=== PATIENT | female | born 1940 | race Caucasian/White ===

== ENCOUNTER 2016-11-12 16:27 | Emergency (ER) | payer OTHER ==
--- NOTE | 2016-11-12 18:05 | ED Physician Documentation ---
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 ) Exacerbated By: walking (standing) Relieved By: nothing Further Comments: yes (Patient states that lamar was standing in her kitchen when her lright knee buckled under her. No associated pain. Has given out from her once before and one month ago which caused her to fall. Fell again this evening and was not able to get back up. No joint swelling noted. Has not seen anyone for the problem. Denies any LOC, cardiac palpitations or bradycardia, no history of seizures.) - ROS CONST: no problems - PAST HX Past History: other (Hyperlipidemia) PE Risk Factors: none Other History: hypertension Surgeries/Procedures: other (tonsilectomy) Immunizations: referred to PCP Allergies/Adverse Reactions: Allergies Allergy/AdvReac Type Severity Reaction Status Date / Time No Known Allergies Allergy Verified 06/19/13 10:25 Home Medications: Ambulatory Orders Medication Instructions Recorded Calcium Carbonate 250 mg PO BID 06/24/13 - SOCIAL HX Smoking History: non-smoker Alcohol Use: none Drug Use: none - FAMILY HX Family History: none - VITAL SIGNS Vital Signs: Vital Signs Temp Pulse Resp BP Pulse Ox 98.8 F 100 H 18 175/70 94 11/12/16 16:34 11/12/16 16:34 11/12/16 16:34 11/12/16 16:34 11/12/16 16:34 - REVIEWED ASSESSMENTS Nursing Assessment Reviewed: Yes Vitals Reviewed: Yes ED Results Lab/Radiology - Radiology Radiology Impressions: normal x-ray, no fracture noted, lateral subluxation of the patella. - Orders Orders: ED Orders Category Date Time Status KNEE 3 VIEWS [RAD] Stat Exams 11/12/16 Ordered Lower Extremity Problem - EXAM General Appearance: no distress Hips: bilateral hip: non-tender, normal inspection, normal range of motion, no evidence of injury Legs: bilateral: non-tender, normal inspection, normal range of motion, no evidence of injury Knees: right: pain (mild tenderness to palpation), soft tissue tenderness, left : normal inspection, bilateral: non-tender, normal range of motion, no evidence of injury, N/A: ecchymosis (none), joint effusion (none) Ankle: bilateral: non-tender, normal inspection, normal range of motion, no evidence of injury DTR - Lower Extremities: knee (R): 2+, knee (L): 2+, ankle (R): 2+, ankle (L): 2 + Neuro/Tendon: normal sensation, normal motor functions, normal tendon functions , responds to pain, no evidence tendon injury RESPIRATORY: no resp distress, chest non-tender, breath sounds normal. No: wheezes, rales, rhonchi CVS: reg rate & rhythm, heart sounds normal, equal pulses, no murmur, no gallop JOINT: limited ROM (mild decrease flex in R knee, really pretty good). No: ligaments laxity NEURO/PSYCH: oriented X3, CN's nml as tested, mood/affect nml, cognition normal SKIN: warm/dry, normal color, cyanosis BACK: normal inspection, no CVA tenderness Discharge Clincal Impression: Knee buckling Qualifiers: Laterality: right Qualified Code(s): M25.361 - Other instability, right knee Referrals: Suzanna Montilla MD [Primary Care Provider] - 2 Days Additional Instructions: Do exercises as directed. To make an appointment to see Dr Montilla about further evaluation and possible physical therapy. Home Medications: Ambulatory Orders Calcium Carbonate 250 mg PO BID 06/24/13 Condition: Stable Disposition: 01 HOME, SELF-CARE Decision to Admit: NO Date of Decison to Admit: 11/12/16 Decision Time: 18:14
[2016-11-12 19:09] VITALS: BP 170/74
--- NOTE | 2016-11-12 19:17 | Diagnostic Imaging Report ---
[facility] [address] [facility].[address] [address] Report Submission Date: Nov 12, 2016 6:28:14 PM CLAIM BENEFIT SPECIALIST Patient Study Name: STEPHEN DOWD Date: Nov 12, 2016 5:59:01 PM CLAIM BENEFIT SPECIALIST Modality Type: CR Gender: F Description: LOWER EXTREMITY : 38 Institution: [facility] Physician: TINO WILL - ADAMS 3 views of the right knee Clinical history: Right knee pain Findings: No acute fracture is identified. There is a joint effusion. There is a lateral subluxation of the patella. Impression: Lateral subluxation of patella with a joint effusion. Electronically signed on Nov 12, 2016 6:28:14 PM CLAIM BENEFIT SPECIALIST by: Jean Claude BENAVIDES
== END 2016-11-12 19:06 | disposition home or self-care (01) ==
LOC: ED 16:27
DX: M25.361 Other instability, right knee (principal)
CPT/HCPCS: 73562; L1830; 99283

== ENCOUNTER 2016-11-12 21:07 | Observation (INO) | payer OTHER ==
[2016-11-12] MEDS ORDERED: 0.9 % SODIUM CHLORIDE 500 ML IV ONE ×2 (21:27→22:59)
--- NOTE | 2016-11-12 21:30 | ED Physician Documentation ---
General Adult - HISTORIAN Historian: patient - HPI Stated Complaint: weakness/fall Chief Complaint: General Adult Onset: hours Timing: still present Severity: moderate Further Comments: yes (Pt is a 76 yo female who lives alone and was here in the ER a short time ago today after falling at home. Pt uses a walker and went home from ER and fell again. Pt states she stuck her head lightly against the wall. She says this was only a minor blow. She has no neck or head pain, but continues to complain of knee pain from her earlier fall. Pt c/o of not being able to keep her balance, even while using her walker. Pt has low SpO2=88% RA on presentation. Pt does not have hx COPD. R knee x-ray done at earlier visit showed lateral subluxation of the patella with effusion, but no fracture.) - ROS CONST: weakness EYES/ENT: none CVS/RESP: cough GI/: other (urinary frequency) MS/SKIN/LYMPH: other (R knee pain s/p fall) NEURO/PSYCH: difficulty walking - PAST HX Past History: other (HLD, HTN, ambulates with walker) Allergies/Adverse Reactions: Allergies Allergy/AdvReac Type Severity Reaction Status Date / Time No Known Allergies Allergy Verified 06/19/13 10:25 Home Medications: Ambulatory Orders Medication Instructions Recorded Calcium Carbonate 250 mg PO BID 06/24/13 - SOCIAL HX Smoking History: non-smoker - FAMILY HX Family History: No - VITAL SIGNS Vital Signs: Vital Signs Temp Pulse Resp BP Pulse Ox 98.6 F 117 H 18 165/73 90 L 11/12/16 21:19 11/12/16 21:19 11/12/16 21:19 11/12/16 21:19 11/12/16 21:19 - REVIEWED ASSESSMENTS Nursing Assessment Reviewed: Yes Vitals Reviewed: Yes Progress - Progress Progress: x-ray R knee from earlier visit, done at 17:59 today: Lateral subluxation of patella with a joint effusion. BUN/Cre ratio = 27 NS 1 L IVF Albuterol HFN SpO2 88 % RA --> 93% 2L NC CXR : elevated R hemidiaphragm & R basilar atelectasis. Admit to obs. ER Physician, Low SpO2, R knee injury with effusion, dehydration , multiple falls. - EKG/XRAY/CT XRAY: chest (Elevation of the right hemidiaphragm and right basilar atelectasis. ) ED Results Lab/Radiology - Orders Orders: ED Orders Category Date Time Status Place Saline Lock/IV Now Care 11/12/16 21:27 Active CHEST 1 VIEW [RAD] Stat Exams 11/12/16 Ordered BNP [NT-proBNP] Stat Lab 11/12/16 Ordered CBC/PLATELET/DIFF Routine Lab 11/12/16 Ordered CMP Routine Lab 11/12/16 Ordered UA [URINALYSIS] Routine Lab 11/12/16 Ordered 0.9 % Sodium Chloride [Normal Saline] 500 ml Med 11/12/16 21:27 Active IV NOW General Adult Physical Exam - PHYSICAL EXAM GENERAL APPEARANCE: moderate distress EENT: eye inspection normal, ENT inspection normal, pharynx normal NECK: normal inspection, supple RESPIRATORY: other (distant breath sounds) CVS: reg rate & rhythm, heart sounds normal ABDOMEN: soft, no organomegaly, normal bowel sounds BACK: normal inspection, no CVA tenderness SKIN: warm/dry, normal color EXTREMITIES: other (R knee tenderness) NEURO: oriented X3, motor nml, sensation nml Discharge Clincal Impression: low SpO2 saturations, Multiple falls, Dehydration, Weakness, R knee injury with joint effusion Lateral subluxation of right patella Qualifiers: Encounter type: subsequent encounter Qualified Code(s): S83.011D - Lateral subluxation of right patella, subsequent encounter Referrals: Suzanna Montilla MD [Primary Care Provider] - Home Medications: Ambulatory Orders Calcium Carbonate 250 mg PO BID 06/24/13 Condition: Stable Disposition: 09 ADMITTED INPATIENT Decision to Admit: [id number] Decision Time: 23:44
[2016-11-12 22:18] LABS: BASOPHILS % 0.1 (0.0-1.5); EOSINOPHILS % 1.1 % (0.0-6.8); LYMPHOCYTES # 1.4 # k/uL (0.6-4.0); MEAN CORPUSCULAR HEMOGLOBIN 30.7 pg (28.0-34.0); MONOCYTES # 0.5 # k/uL (0.0-0.9); MONOCYTES % 4.8 % (0.0-11.0)
[2016-11-12 22:47] LABS: eGFR (African) > 60; eGFR (Non-African) > 60
--- NOTE | 2016-11-12 22:54 | Diagnostic Imaging Report ---
ALEXANDER HERMOSILLO [facility] [address] [facility] [address] [address] Report Submission Date: Nov 12, 2016 9:58:[address] MACHINE OPERATOR Patient Study Name: STEPHEN DOWD Date: Nov 12, 2016 9:42:[address] MACHINE OPERATOR Modality Type: CR Gender: F Description: CHEST : 38 Institution: [facility] Physician: ALEXANDER HERMOSILLO Chest AP portable Exam: November 12, 2016. Clinical history: Cough. Findings: No comparison studies are provided. There is elevation of the right hemidiaphragm and right basilar atelectasis. The cardiac and mediastinal silhouettes are normal. The aortic arch contour is prominent. The left lung is clear. The pulmonary vascularity is within normal limits. Impression: Elevation of the right hemidiaphragm and right basilar atelectasis. Electronically signed on Nov 12, 2016 9:58:[address] MACHINE OPERATOR by: Davi BENAVIDES
[2016-11-12 23:16] LABS: APPEARANCE,URINE Clear (CLEAR); COLOR,URINE Yellow (YELLOW); OCCULT BLOOD,URINE Negative (NEGATIVE); UROBILINOGEN URINE 0.2 Eu (0.2-1.0)
[2016-11-12] MEDS ORDERED: IPRATROPIUM/ALBUTEROL SULFATE 3 ML AMPUL.NEB NEB ONE (23:29)
[2016-11-12] MEDS ORDERED: ALBUTEROL SULFATE 2.5 MG/3 ML AMPUL.NEB NEB PRN (23:42)
[2016-11-13] MEDS: 0.9 % SODIUM CHLORIDE 1,000 ML IV SCH ×2 (00:35→11:18)
[2016-11-13 02:05] VITALS: BMI 32.7
[2016-11-13] MEDS ORDERED: CYANOCOBALAMIN 1,000 MCG TABLET PO SCH (09:00)
[2016-11-13] MEDS ORDERED: CALCIUM CARB 500 MG TAB.CHEW PO SCH (09:00)
[2016-11-13] MEDS ORDERED: HYDROCHLOROTHIAZIDE 25 MG TABLET PO SCH (09:00)
[2016-11-13] MEDS ORDERED: LISINOPRIL 20 MG TABLET PO SCH (09:00)
--- NOTE | 2016-11-13 11:44 | Diagnostic Imaging Report ---
S[facility]ING/MED SURG [facility] [address] [facility] [address] [address] Report Submission Date: Nov 13, 2016 11:09:31 AM REMOTE SENSING PROGRAM MANAGER Patient Study Name: STEPHEN ODWD Date: Nov 13, 2016 9:40:09 AM REMOTE SENSING PROGRAM MANAGER Modality Type: CR Gender: F Description: LOWER EXTREMITY : 38 Institution: [facility] Physician: SOUTH WING/MED SURG Bilateral knees Clinical history: Pain Abnormal patella Technique AP lateral and sunrise of both knees Findings: Both knee show degenerative arthritis which appears fairly symmetric. The arthritis affects the knee joint and patellofemoral joint. There is periarticular spurring. No fracture, effusion bone destruction is seen. Both the show popliteal artery calcification. Impression degenerative arthritis Acute bony pathology Vascular calcification Electronically signed on Nov 13, 2016 11:09:31 AM REMOTE SENSING PROGRAM MANAGER by: Emilio BENAVIDES
--- NOTE | 2016-11-13 11:51 | Discharge Summary ---
Discharge Summary - Discharge Sumary History of Present Illness: Patient admitted to OBS due to knee pain and unable to return home. She presented to ER twice with 2 different falls in 10 hours. Radiologist worried about subluxation of L patella. Condition at Discharge: Stable Home Medications: Ambulatory Orders Medication Instructions Recorded Calcium Carbonate 250 mg PO BID 06/24/13 Aspirin [Maggie] 11/13/16 Consultations this Visit: None Procedures this Visit: None Allergies/Adverse Reactions: Allergies Allergy/AdvReac Type Severity Reaction Status Date / Time No Known Allergies Allergy Verified 06/19/13 10:25 Patient Problems: Current Active Problems Problem Status Onset Dehydration Acute Lateral subluxation of right patella Acute Multiple falls Acute Weakness Acute Discharge Summary: Patient was admitted 23 hr obs by ER staff due to 2 falls and L knee pain. Patient remained stable but aware she can't return home at this time. Has agreed to go [facility] for some therapy and nursing care. Xrays of B knees showed same changed bilaterally. Hospital Course: Discharge Dx: L knee pain. OA. Ataxia. HTN. Osteoprosis. Disp - ICF
[2016-11-13 14:36] VITALS: BP 138/79
[2016-11-13] MEDS ORDERED: SIMVASTATIN 20 MG TABLET PEG SCH (21:00)
== END 2016-11-13 13:30 ==
LOC: ED 21:07 → SOUTH 11-13 00:09
PROVIDERS: ADMIT Emergency Medicine; ATTEND Emergency Medicine
DX: M17.0 Bilateral primary osteoarthritis of knee (principal); Z91.81 History of falling; Z87.828 Personal history of other (healed) physical injury and trauma; R27.0 Ataxia, unspecified; I10 Essential (primary) hypertension; M81.0 Age-related osteoporosis without current pathological fracture
CPT/HCPCS: 71010; 73562; 80053; 81002; 83880; 85025; 97535; G0378; J7030; J7060; 96360; 96361; S1016

== ENCOUNTER 2016-11-13 13:30 | Inpatient (IN) | payer SELFPAY ==
[2016-11-13 10:16] VITALS: BP 150/70
--- NOTE | 2016-11-14 16:00 | History and Physical Report ---
ADMISSION NOTE FOR [facility] CARE CHIEF COMPLAINT: Leg pain. HISTORY OF PRESENT ILLNESS: This is a 76-year-old female who came in through the ER and was admitted for observation for bilateral knee pain. She has an ataxic gait and has arthritis of the knees. She lives alone and is unable to go home, so it was elected to transfer her to [facility] care after she left observation care. PAST MEDICAL HISTORY: 1. Hypertension. 2. Hyperlipidemia. 3. Vitamin D deficiency with anemia. 4. Ataxia. 5. Osteopenia, bone density tests done in March 2015 was minus 2.4. PAST SURGICAL HISTORY: 1. Tonsillectomy. 2. Left hip fracture in 2012. MEDICATIONS: 1. Lisinopril/HCTZ 20/12.5 mg b.i.d. 2. Alendronate 70 mg weekly. 3. Lovastatin 40 mg daily. 4. Vitamin B12, 1000 mcg daily. 5. Calcium carbonate 500 mg b.i.d. 6. Vitamin D3, 2000 units daily. CODE STATUS: FULL CODE. HEALTH MAINTENANCE: Pneumonia 23 shot on June 29, 2013. Pneumonia 13 shot on June 28, 2015. SOCIAL HISTORY: She is single. She really has no family. She does not smoke. FAMILY HISTORY: Her sister of colon cancer at the age of 74. Patient has refused colonoscopies in the past. Mom of a stroke. PHYSICAL EXAMINATION: General: A well-nourished female in no acute distress. She is alert and oriented x3. HEENT: TMs are clear. Oropharynx is pink and moist. Neck: Supple. Lungs: Clear to auscultation bilaterally. Heart: Regular rate with no murmur. Abdomen: Soft and nontender. Extremities: Show crepitance and hypertrophy of the knee joints. There is no edema. ASSESSMENT AND PLAN: 1. Knee pain from osteoarthritis of the knees. We will go ahead and admit her to [facility] care. Get physical therapy involved. She just cannot return home alone and that is certainly her goal. 2. She also has hypertension. This is stable. We will watch her blood pressure in house. 3. History of vitamin B12 deficiency. This has been doing well and was looked at with observation care. 4. Osteopenia. Continue the calcium carbonate, vitamin D3, and alendronate. MTDD
--- NOTE | 2017-08-04 09:44 | Discharge Summary ---
DISCHARGED FROM [facility] TO [facility] DATE OF ADMISSION: November 13, 2016 DATE OF DISCHARGE: August 02, 2017 HOSPITAL COURSE: Patient was admitted to [facility] care after she felt unsafe to go home from a hospital stay. She did very well during her hospitalization. She had 1 episode that resembled a TIA, but the workup was negative. She continued to do very well, so therefore she elected to go to [facility] and was transferred there accordingly. CONDITION ON DISCHARGE: Good. DISCHARGE ACTIVITY: Ad louis. DISCHARGE DIET: Regular diet. MEDICATIONS ON DISCHARGE: 1. Fosamax 70 mg every Friday. 2. Vitamin B12, 1000 mcg daily. 3. Vitamin D3, 2000 units daily. 4. Aspirin 81 mg daily. 5. Lisinopril/hydrochlorothiazide 20/12.5 mg b.i.d. 6. Os-Jeremiah plus D 1 twice a day. 7. Lovastatin 40 mg at night. 8. Tylenol 650 mg every 6 hours p.r.n. pain. 9. Ibuprofen 400 mg every 8 hours p.r.n. pain. DISCHARGE INSTRUCTIONS: See Dr. Montilla in 6 months for follow up. KENNEDY
== END 2017-08-02 01:50 | DRG 948 ==
LOC: ICF 13:30
PROVIDERS: ADMIT Family Medicine; ATTEND Family Medicine
DX: R53.1 Weakness (principal)

== ENCOUNTER 2016-12-17 13:18 | Outpatient (CLI) | payer OTHER | END 2016-12-17 13:20 | LOC: POD 13:18 | PROVIDERS: ATTEND Podiatrist | DX: B35.1 Tinea unguium (principal); M79.674 Pain in right toe(s); M79.675 Pain in left toe(s) | CPT/HCPCS: G0463 ==

== ENCOUNTER 2017-03-28 13:14 | Outpatient (CLI) | payer OTHER | END 2017-03-28 13:15 | LOC: POD 13:14 | PROVIDERS: ATTEND Podiatrist | DX: B35.1 Tinea unguium (principal); M79.674 Pain in right toe(s); M79.675 Pain in left toe(s) | CPT/HCPCS: 11721; G0463 ==

== ENCOUNTER 2017-04-25 08:34 | Outpatient (CLI) | payer OTHER ==
--- NOTE | 2017-04-25 09:13 | Diagnostic Imaging Report ---
GUILLERMINA JONES/BINDU [facility] [address] [facility] [address] [place] [address]. [address] Report Submission Date: Apr 25, 2017 9:11:27 AM CDT Patient Study Name: STEPHEN DOWD Date: Apr 25, 2017 8:55:04 AM CDT Modality Type: CT\SR Gender: F Description: CT BRAIN W/O CONTRAST : 38 Institution: [facility] Physician: GUILLERMINA JONES/BINDU Head CT without contrast CLINICAL HISTORY: Mental status changes. TECHNIQUE: CT examination of brain is performed in contiguous axial slices without the use of contrast. Sagittal and coronal reconstructions are performed by the technologist. FINDINGS: The 4th ventricle lies in a normal midline position. The ventricles and sulci are prominent secondary to atrophy. Chronic ischemic changes are present in the periventricular regions. There is no hypodense or hyperdense mass or intracranial hemorrhage. Intracranial atherosclerosis is demonstrated. Visualized paranasal sinuses and the mastoid air cells are clear. IMPRESSION: Atrophy and chronic small vessel ischemic changes. Intracranial atherosclerosis. No acute intracranial changes. Electronically signed on Apr 25, 2017 9:11:27 AM CDT by: Ian BENAVIDES
[2017-04-25 10:18] LABS: BASOPHILS % 0.2 (0.0-1.5); EOSINOPHILS % 0.7 % (0.0-6.8); MONOCYTES % 3.7 % (0.0-11.0); NEUTROPHILS # 9.4 # k/uL (1.4-7.7)
[2017-04-25 10:33] LABS: eGFR (African) > 60; eGFR (Non-African) > 60
[2017-04-25 15:39] LABS: APPEARANCE,URINE Clear (CLEAR); COLOR,URINE Yellow (YELLOW); OCCULT BLOOD,URINE Trace-lysed (NEGATIVE); UROBILINOGEN URINE 0.2 Eu (0.2-1.0)
[2017-04-25 15:50] LABS: AMORPHOUS SEDIMENT,UR FEW (NEGATIVE)
--- NOTE | 2017-04-25 16:09 | Diagnostic Imaging Report ---
GUILLERMINA JONES/BINDU [facility] [address] [facility] [address] [address] Report Submission Date: Apr 25, 2017 3:56:08 PM CDT Patient Study Name: STEPHEN DOWD Date: Apr 25, 2017 11:31:39 AM CDT Modality Type: US Gender: F Description: DPLX SCN XTRCRAN ART CMP NOAH : 38 Institution: [facility] Physician: GUILLERMINA JONES/BINDU Duplex imaging of the carotids CLINICAL HISTORY: Dysphagia. Difficulty speaking. TECHNIQUE: Real-time sonography of the carotid and vertebral arteries is performed in transverse and longitudinal views. Doppler interrogation and color flow imaging are additionally used. FINDINGS: There is minimal plaque formation the region of the carotid bulb and proximal internal carotid arteries. No significant stenosis is evident on the grayscale images. Internal carotid peak velocities measure 104 centimeters/second on the right and 66 centimeters/second on the left with an internal carotid to common carotid artery ratio 1.1 on the right and 0.8 on the left. The vertebral arteries demonstrate normal cephalad flow. IMPRESSION: Minimal plaque formation. Bilateral less than 50% internal carotid stenosis. The degree of carotid stenosis is estimated using the Society of Radiologists in Ultrasound consensus conference of 2003 criteria. Electronically signed on Apr 25, 2017 3:56:08 PM CDT by: Ian BENAVIDES
== END 2017-04-25 08:44 ==
LOC: LAB 08:34
PROVIDERS: ATTEND Family Medicine
DX: R41.82 Altered mental status, unspecified (principal)
CPT/HCPCS: 36415; 70450; 80053; 81002; 85025; 87086; 93880

== ENCOUNTER 2017-04-29 16:08 | Outpatient (CLI) | payer OTHER | END 2017-04-29 16:30 | LOC: RAD 16:08 | PROVIDERS: ATTEND Family Medicine | DX: E86.0 Dehydration (principal); Z91.81 History of falling; G89.29 Other chronic pain; I10 Essential (primary) hypertension; E78.5 Hyperlipidemia, unspecified | CPT/HCPCS: 74230 ==

== ENCOUNTER 2017-07-01 13:19 | Outpatient (CLI) | payer OTHER | END 2017-07-01 13:20 | LOC: POD 13:19 | PROVIDERS: ATTEND Podiatrist | DX: B35.1 Tinea unguium (principal); M79.674 Pain in right toe(s); M79.675 Pain in left toe(s) | CPT/HCPCS: 11721; G0463 ==

== ENCOUNTER 2017-07-15 16:43 | Outpatient (CLI) | payer OTHER ==
--- NOTE | 2017-07-15 18:11 | Diagnostic Imaging Report ---
[facility] [address] [facility].[address] [address] Report Submission Date: Jul 15, 2017 6:04:21 PM CDT Patient Study Name: STEPHEN DOWD Date: Jul 15, 2017 5:37:52 PM CDT Modality Type: CR Gender: F Description: CHEST : 38 Institution: [facility] Physician: GUILLERMINA JONES/BINDU Examination: Portable chest History: Chest discomfort Comparison exam: 12 November 2016 Findings: Single view of the chest demonstrates a normal cardiac silhouette. Tortuous aorta with vascular calcifications involving the aortic arch. Elevation of the right hemidiaphragm. Lung finley without focal infiltrate. No effusion. Osseous structures are appropriate for age. Impression: Stable elevated right hemidiaphragm. No acute pulmonary process. Electronically signed on Jul 15, 2017 6:04:21 PM CDT by: Rick BENAVIDES
== END 2017-07-15 16:44 ==
LOC: RAD 16:43
PROVIDERS: ATTEND Family Medicine
DX: R05 Cough (principal)
CPT/HCPCS: 71020

== ENCOUNTER 2017-07-18 08:22 | Outpatient (CLI) | payer OTHER | END 2017-07-18 08:23 | LOC: OUT 08:22 | PROVIDERS: ATTEND Family Medicine | DX: Z23 Encounter for immunization (principal) | CPT/HCPCS: 90685; G0008 ==

== ENCOUNTER 2017-07-30 08:36 | Outpatient (CLI) | payer OTHER ==
[2017-07-30] MEDS ORDERED: TUBERCULIN,PURIF.PROT.DERIV. 5 TU/0.1 ML ID ONE (12:41)
== END 2017-07-30 11:21 ==
LOC: OUT 08:36
PROVIDERS: ATTEND Family Medicine
DX: R53.1 Weakness (principal)
CPT/HCPCS: 86580

== ENCOUNTER 2017-07-31 11:32 | Outpatient (CLI) | payer OTHER | END 2017-07-31 13:27 | LOC: RAD 11:32 | PROVIDERS: ATTEND Family Medicine | DX: M81.0 Age-related osteoporosis without current pathological fracture (principal) | CPT/HCPCS: 77080 ==

== ENCOUNTER 2017-08-02 06:58 | Outpatient (CLI) | payer OTHER ==
[2017-08-02 07:51] LABS: eGFR (African) > 60; eGFR (Non-African) > 60
== END 2017-08-02 07:00 ==
LOC: LAB 06:58
PROVIDERS: ATTEND Family Medicine
DX: I10 Essential (primary) hypertension (principal)
CPT/HCPCS: 36415; 80053; 80061

== ENCOUNTER 2017-08-31 12:20 | Emergency (ER) | payer OTHER ==
--- NOTE | 2017-08-31 13:13 | ED Physician Documentation ---
General Adult - HISTORIAN Historian: patient, paramedics - HPI Stated Complaint: syncope, confusion Chief Complaint: General Adult Onset: minutes Timing: better Severity: moderate Further Comments: yes (Pt is a 77 yo female shelter pt who, per report, passed out this am and appeared confused when she regained consciousness. Pt reports no seizure hx. Pt is A&Ox 3 in ER and says she is feeling well now. Pt has had no chest pain/sob.) - ROS CONST: no problems EYES/ENT: none CVS/RESP: none GI/: none MS/SKIN/LYMPH: none NEURO/PSYCH: other (syncopal episode) - PAST HX Past History: other (HTN, HLD, Vit D deficiency with anemia, ataxia, osteopenia) Surgeries/Procedures: other (tonsillectomy, L hip fracture 2012) Allergies/Adverse Reactions: Allergies Allergy/AdvReac Type Severity Reaction Status Date / Time No Known Allergies Allergy Verified 08/31/17 13:47 Home Medications: Ambulatory Orders Medication Instructions Recorded Calcium Carbonate 250 mg PO BID 06/24/13 Aspirin [Maggie] 81 mg PO DAILY 11/13/16 Cholecalciferol [Vitamin D-3] 1,000 unit PO DAILY 08/31/17 Lisinopril/Hydrochlorothiazide 1 each PO BID 08/31/17 [Zestoretic] - SOCIAL HX Smoking History: non-smoker - FAMILY HX Family History: Yes (Mother: CVA; Sister: colon cancer) - VITAL SIGNS Vital Signs: Vital Signs Temp Pulse Resp BP Pulse Ox 138/79 11/13/16 12:03 - REVIEWED ASSESSMENTS Nursing Assessment Reviewed: Yes Vitals Reviewed: Yes Progress - Progress Progress: CXR: Examination of the chest in single portable AP view with comparison to examination of July 15, 2017 demonstrates the lungs to be hypoventilated but clear. Elevation of the right hemidiaphragm is again seen. Cardiovascular and mediastinal silhouettes are stable. Aorta is atherosclerotic. Impression: 1. Hypoventilation with elevated right hemidiaphragm. 2. Aortic atherosclerosis. 3. No significant change. - EKG/XRAY/CT EKG: NSR (HR=82; IN interval normal; possible LVH.) ED Results Lab/Radiology - Orders Orders: ED Orders Category Date Time Status Continuous EKG monitoring Q30M Care 08/31/17 13:06 Ordered Continuous Pulse Oximetry Q30M Care 08/31/17 13:[address] IV Lock 1T Care 08/31/17 13:06 Ordered CHEST 1 VIEW [RAD] Stat Exams 08/31/17 13:06 Ordered CBC/PLATELET/DIFF Routine Lab 08/31/17 Ordered CMP Routine Lab 08/31/17 Ordered CREATINE KINASE Routine Lab 08/31/17 13:06 Ordered TROPONIN I (cTnI) Stat Lab 08/31/17 13:06 Ordered UA [URINALYSIS] Routine Lab 08/31/17 Ordered EKG WITH COMPARISON Stat Ther 08/31/17 13:06 Ordered General Adult Physical Exam - PHYSICAL EXAM GENERAL APPEARANCE: no distress EENT: eye inspection normal, pharynx normal, NANCY NECK: normal inspection, supple RESPIRATORY: no resp distress, chest non-tender, breath sounds normal CVS: reg rate & rhythm, heart sounds normal ABDOMEN: soft, no organomegaly, normal bowel sounds BACK: normal inspection, no CVA tenderness SKIN: warm/dry, normal color EXTREMITIES: non-tender, normal range of motion, no evidence of injury NEURO: oriented X3, motor nml, sensation nml Discharge Clincal Impression: syncope, dehydration Referrals: Suzanna Montilla MD [Primary Care Provider] - Condition: Good Disposition: 01 HOME, SELF-CARE Decision to Admit: NO Decision Time: 14:53
[2017-08-31 13:46] LABS: BASOPHILS % 0.3 (0.0-1.5); EOSINOPHILS % 1.6 % (0.0-6.8); MEAN CORPUSCULAR HEMOGLOBIN 25.4 pg (28.0-34.0); MEAN CORPUSCULAR VOLUME 84.9 fl (80.0-100.0); MONOCYTES % 4.6 % (0.0-11.0); NEUTROPHILS # 7.2 # k/uL (1.4-7.7)
--- NOTE | 2017-08-31 13:59 | Diagnostic Imaging Report ---
ALEXANDER HERMOSILLO [facility] [address] [facility] [address] [place] [address]. [address] Report Submission Date: Aug 31, 2017 1:40:57 PM CONSTRUCTION PRODUCER Patient Study Name: STEPHEN DOWD Date: Aug 31, 2017 1:18:10 PM CONSTRUCTION PRODUCER Modality Type: CR Gender: F Description: CHEST : 36 Institution: [facility] Physician: ALEXANDER HERMOSILLO Portable chest Clinical history: PT STATES PASSED OUT BUT DOES NOT REMEMBER INCIDENT. NO CHEST COMPLAINS Findings: Examination of the chest in single portable AP view with comparison to examination of July 15, 2017 demonstrates the lungs to be hypoventilated but clear. Elevation of the right hemidiaphragm is again seen. Cardiovascular and mediastinal silhouettes are stable. Aorta is atherosclerotic. Impression: 1. Hypoventilation with elevated right hemidiaphragm. 2. Aortic atherosclerosis. 3. No significant change. Electronically signed on Aug 31, 2017 1:40:57 PM CONSTRUCTION PRODUCER by: Ian BENAVIDES
[2017-08-31 14:04] LABS: eGFR (African) > 60; eGFR (Non-African) > 60
[2017-08-31 14:55] VITALS: BP 153/68
== END 2017-08-31 14:52 | disposition home or self-care (01) ==
LOC: ED 12:20
DX: R55 Syncope and collapse (principal); E86.0 Dehydration
CPT/HCPCS: 71010; 80053; 82550; 83880; 84484; 85025; 99283